=== PATIENT | female | born 1955 | race Caucasian/White ===

== ENCOUNTER 2018-03-18 08:19 | Day surgery (SDC) | payer OTHER ==
[2018-03-18] MEDS ORDERED: LR 1,000 ML IV ONE (08:28)
[2018-03-18] MEDS ORDERED: LIDOCAINE 1% 2 ML INJ ID PRN (08:28)
--- NOTE | 2018-03-18 09:39 | PDANEPAE ---
ANE Past Medical History - Cardiovascular History Hx Hypertension: Yes Hx Arrhythmias: No Hx Chest Pain: No Hx Coronary Artery / Peripheral Vascular Disease: No Hx CHF / Valvular Disease: No Hx Palpitations: No Cardiovascular History Comment: INTERMITTENT HEART FLUTTERS - Pulmonary History Hx COPD: No Hx Asthma/Reactive Airway Disease: No Hx Recent Upper Respiratory Infection: No Hx Oxygen in Use at Home: No Hx Sleep Apnea: Yes Sleep Apnea Screening Result - Last Documented: Positive Pulmonary History Comment: HAS INHALER TO USE WHEN COUGHING WHICH IS USUALLY 3X DAY. LINDA UNABLE TO HANDLE CPAP OR NASAL OXYGEN. LUNG NODULE - Neurologic History Hx Cerebrovascular Accident: No Hx Seizures: No Hx Dementia: No Neurologic History Comment: TRAUMATIC BRAIN INJURY. COGNITIVE DISORDER - Endocrine History Hx Diabetes: No Hypothyroid: No Hyperthyroid: No - Renal History Hx Renal Disorders: Yes Renal History Comment: FREQUENT URINATION - Liver History Hx Hepatic Disorders: No - Neurological & Psychiatric Hx Hx Neurological and Psychiatric Disorders: Yes Neurological / Psychiatric History Comment: DEPRESSION/ANXIETY. PTSD - Cancer History Hx Cancer: No - Congenital Disorder History Hx Congenital Disorders: No - GI History Hx Gastrointestinal Disorders: Yes Gastrointestinal History Comment: DIVERTICULOSIS - Other Health History Other Health History: SERIOUS DRY MOUTH. CERVICAL DISC DX/STENOSIS. CONSTANT NECK PAIN. LT ARM N/T - Chronic Pain History Chronic Pain: Yes (ABOVE PUBIC AREA) - Surgical History Prior Surgeries: DX LAP PID. HYSTERECTOMY. LT KNEE ACL RECONSTRUCTION. APPY. REMVL KIDNEY STONE. PATRICK LOWER AND UPPER BLEPH. FACE LIFT ANE Review of Systems Review of Systems: - Exercise capacity METS (RN): 2 METS ANE Patient History - Allergies Allergies/Adverse Reactions: adhesive Allergy (Verified 03/01/18 11:58) Cephalosporins Allergy (Verified 03/01/18 11:58) Anaphylaxis tetracycline Allergy (Verified 03/01/18 11:58) Anaphylaxis - Home Medications Home Medications: Albuterol Sulfate PRN 03/01/18 [Last Taken 03/17/18 08:00] Aleve PRN 03/01/18 [Last Taken 1 Month Ago ~02/16/18] Fish Oil 1000 mg (*) DAILY 03/01/18 [Last Taken 1 Week Ago ~03/11/18] Herbals/Supplements -Info Only DAILY 03/01/18 [Last Taken 1 Week Ago ~03/11/18] Klonopin BID 03/01/18 [Last Taken 03/17/18 18:00] Losartan Potassium EVERY OTHER DAY 03/01/18 [Last Taken Unknown] Losartan/Hydrochlorothiazide EVERY OTHER DAY 03/01/18 [Last Taken 03/18/18 06:00 ] Medical Marijuana IH TID 03/01/18 [Last Taken 03/17/18 22:30] Metoprolol Succinate DAILY06 03/01/18 [Last Taken 03/18/18 06:00] Paxil DAILY06 03/01/18 [Last Taken 03/18/18 06:00] traZODone HS 03/01/18 [Last Taken 03/17/18 22:30] Atorvastatin Calcium 03/07/18 [Last Taken 03/18/18 06:00] Spironolactone DAILY06 03/07/18 [Last Taken Unknown] - NPO status NPO Since - Liquids (Date): 03/18/18 NPO Since - Liquids (Time): 08:00 NPO Since - Solids (Date): 03/16/18 NPO Since - Solids (Time): 09:00 - Smoking Hx Smoking Status: Heavy smoker ANE Labs/Vital Signs - Vital Signs Blood Pressure: 126/78 Heart Rate: 65 Respiratory Rate: 16 O2 Sat (%): 93 Height: 160.02 cm Weight: 76.204 kg ANE Physical Exam - Airway Neck exam: decreased ROM Mallampati Score: Class 3 Mouth exam: normal dental/mouth exam - Pulmonary Pulmonary: no respiratory distress, no rales or rhonchi, clear to auscultation - Cardiovascular Cardiovascular: regular rate and rhythym, no murmur, rub, or gallop - ASA Status ASA Status: III ANE Anesthesia Plan Anesthesia Plan: MAC Total IV Anesthesia: Yes
[2018-03-18] MEDS ORDERED: fentaNYL 100 MCG/2 ML INJ ONE (09:48)
[2018-03-18] MEDS ORDERED: PROPOFOL/EMULSION 500 MG/50 ML BOTTLE IV ONE (09:49)
--- NOTE | 2018-03-18 09:57 | PDGENHP ---
History & Physical Chief Complaint: Screeing colon History of Present Illness: diverticulosis, family history of colon polyps Pertinent Past, Social, Family History: negative Relevant Physical Exam: lungs clear. cardiac normal
[2018-03-18] MEDS ORDERED: PHENYLEPHRINE HCL 100 MCG/ML SYR IVP PRN (10:10)
[2018-03-18] MEDS ORDERED: ALBUTEROL 3 ML DEYVIAL IH PRN (10:10)
[2018-03-18] MEDS ORDERED: LR 500 ML IV PRN (10:10)
[2018-03-18] MEDS ORDERED: ONDANSETRON 4 MG/2 ML VIAL IVP PRN (10:10)
[2018-03-18] MEDS ORDERED: NALOXONE HCL 0.4 MG/ML INJ IVP PRN (10:10)
[2018-03-18] MEDS ORDERED: epHEDrine SULFATE 10 MG/ML SYR IVP PRN (10:10)
--- NOTE | 2018-03-18 10:20 | POSTANESTH ---
Post Anesthetic Evaluation Cardiovascular Status: Normal, Stable Respiratory Status: Normal, Stable Level of Consciousness/Mental Status: Can Participate in Eval Pain Control: Adequate, Prn Tx Ordered Nausea/Vomiting Control: Adequate, Prn Tx Ordered Complications Possibly Related to Anesthesia: None Noted
--- NOTE | 2018-03-18 10:25 | GIREPORT ---
[facility] Surgical Services - Endoscopy Department Patient Name: Verona Rinaldi Procedure Date: 03/18/2018 9:30 AM Patient Type: Outpatient Attending MD/ ER Physician: Lester Jenkins MD Procedure: Colonoscopy Indications: Colon cancer screening in patient at increased risk: Family history of 1st-degree relative with colon polyps Providers: Lester Jeknins MD Medicines: Sedation Required Anesthesia Staff Assistance Complications: No immediate complications. Description of Procedure: After obtaining informed consent, the scope was passed under direct vis ion. Throughout the procedure, the patient's blood pressure, pulse, and oxyg en saturations were monitored continuously. The Colonoscope with irrigatio n channel was introduced through the anus and advanced to the cecum, identified by appendiceal orifice and ileocecal valve. The colonoscopy was performed without difficulty. The patient tolerated the procedure well. The quality of the bowel preparation was good. The ileocecal valve, appendi ceal orifice, and rectum were photographed. Findings: Many small and large-mouthed diverticula were found in the sigmoid colo n, descending colon and ascending colon. A 3 mm polyp was found in the rectum. The polyp was sessile. The polyp was removed with a cold biopsy forceps. Resection and retrieval were comple te. A 4 mm polyp was found in the descending colon. The polyp was sessile. The polyp was removed with a cold biopsy forceps. Resection and retrieval w ere complete. A 5 mm polyp was found in the ascending colon. The polyp was sessile. T he polyp was removed with a cold biopsy forceps. Resection and retrieval w ere complete. The exam was otherwise without abnormality on direct and retroflexion v iews. Estimated Blood Loss: Estimated blood loss: none. Post Op Diagnosis: - Diverticulosis in the sigmoid colon, in the descending colon and in t he ascending colon. - One 3 mm polyp in the rectum, removed with a cold biopsy forceps. Res ected and retrieved. - One 4 mm polyp in the descending colon, removed with a cold biopsy forceps. Resected and retrieved. - One 5 mm polyp in the ascending colon, removed with a cold biopsy for ceps. Resected and retrieved. - The examination was otherwise normal on direct and retroflexion views . Recommendation: - Patient has a contact number available for emergencies. The signs and symptoms of potential delayed complications were discussed with the pat ient. Return to normal activities tomorrow. Written discharge instructions we re provided to the patient. - High fiber diet. - Continue present medications. - Await pathology results. - Repeat colonoscopy is recommended. The colonoscopy date will be deter mined after pathology results from today's exam become available for review. - If the pathology report reveals adenomatous tissue, then repeat the colonoscopy for surveillance in 5 years. - If the pathology report indicates hyperplastic polyp, then repeat colonoscopy for screening purposes in 10 years. - Thank you for allowing me to participate in the care of your patient. Attending Participation: I personally performed the entire procedure. Lester Jenkins MD Lester Jenkins MD 03/18/2018 10:25:03 AM This report has been signed electronicallyStbrian Jenkins MD Number of Addenda: 0 Note Initiated On: 03/18/2018 9:30 AM Total Procedure Duration Time 0 hours 9 minutes 5 seconds [email or web address]
[2018-03-18 11:13] VITALS: BP 150/85
== END 2018-03-18 11:44 | disposition home or self-care (01) ==
LOC: FSGY 08:19
PROVIDERS: ATTEND Internal Medicine Gastroenterology
PROC: 0DJD8ZZ Inspection of Lower Intestinal Tract, Via Natural or Artificial Opening Endoscopic (ICD-10-PCS; principal; 2018-03-18 09:45)
PROC: 0DBE8ZX Excision of Large Intestine, Via Natural or Artificial Opening Endoscopic, Diagnostic (ICD-10-PCS; principal; 2018-03-18 09:45)
DX: Z12.11 Encounter for screening for malignant neoplasm of colon (principal); K57.30 Diverticulosis of large intestine without perforation or abscess without bleeding; D12.2 Benign neoplasm of ascending colon; D12.4 Benign neoplasm of descending colon; K62.1 Rectal polyp; F17.200 Nicotine dependence, unspecified, uncomplicated
CPT/HCPCS: J2704; J3010